=== PATIENT | female | born 1985 | race Caucasian/White ===

== ENCOUNTER 2023-06-15 17:45 | Emergency (ER) | payer BC | END 2023-06-15 19:25 | disposition home or self-care (01) | LOC: MW.ED 17:45 | DX: S83.92XA Sprain of unspecified site of left knee, initial encounter (principal); S86.912A Strain of unspecified muscle(s) and tendon(s) at lower leg level, left leg, initial encounter | CPT/HCPCS: 73562-26-LT; 73562-LT; 99283 ==